=== PATIENT | male | born 1955 | race Caucasian/White ===

== ENCOUNTER 2017-11-30 23:19 | Inpatient (IN) | payer OTHER ==
[~2017-11-30] VITALS: Ht 175.3 cm; Wt 64.6 kg
[~2017-11-30 23:19] MED LIST: ACETAMINOPHEN-H1 TA1 PO; ASPIR 8181 MG PO; BACTRIM DS1 TAB PO; ENALAPRIL MALEA10 MG PO; FERL PO; FUROSEMIDE40 MG PO; HUMALOG100 U/ML SC; HUMULIN R100 U/1 M1 SC; LANTUS SOLOS100 U/M1 SQ; LASIX20 MG PO; NAP375 PO; OMEPRAZOLE40 M1 PO; ZOS3PM IV
[2017-11-30 23:22] VITALS: Ht 175.3 cm; Wt 64.6 kg
[2017-12-01 00:14] LABS: BASOPHIL % 0.5 % (0-2); PLATELET COUNT 198 x10^3mcL (130-400); RED CELL DISTRIBUTION WIDTH 14.8 % (11.5-14.5)
[2017-12-01 00:30] LABS: CALCIUM 8.8 mg/dL (8.5-10.1); CREATININE SERUM 2.7 mg/dL (0.7-1.3); POTASSIUM SERUM 5.2 mmol/L (3.5-5.1)
[2017-12-01 00:34] LABS: ALBUMIN 3.4 g/dL (3.4-5.0); BILIRUBIN TOTAL 0.3 mg/dL (0.20-1.00)
[2017-12-01 00:37] LABS: TOTAL PROTEIN, SERUM 8.3 g/dL (6.4-8.2)
[2017-12-01 03:10] VITALS: BP 153/90
[2017-12-01 04:55] LABS: T3 TOTAL 0.92 ng/mL
[2017-12-01 05:07] LABS: FREE T4 1.23 ng/dL (0.76-1.46); FREE THYROXINE INDEX 3.2 ug/dL (1.4-4.5); T4(THYROXINE) 9.1 ug/dL (4.7-13.3)
[2017-12-01 05:09] LABS: CHOLESTEROL/HDL RATIO 4.8; MAGNESIUM 2.4 mg/dL (1.8-2.4); PHOSPHOROUS 4.7 mg/dL (2.5-4.9)
[2017-12-01 06:47] LABS: UA SPECIFIC GRAVITY >=1.030 (1.005-1.035); microscopic required? YES; urine erythrocyte TRACE (NEGATIVE)
[2017-12-01 09:11] VITALS: BP 172/98
[2017-12-01 11:52] VITALS: BP 136/81
[2017-12-01 16:33] VITALS: BP 141/77
[2017-12-01 20:08] VITALS: BP 155/87
[2017-12-02 06:01] VITALS: BP 154/80
[2017-12-02 06:03] LABS: BASOPHIL % 0.5 % (0-2); PLATELET COUNT 231 x10^3mcL (130-400); RED CELL DISTRIBUTION WIDTH 14.4 % (11.5-14.5)
[2017-12-02 06:46] LABS: CALCIUM 7.9 mg/dL (8.5-10.1); CARBON DIOXIDE 18.6 mmol/L (21-32); CHLORIDE SERUM 110 mmol/L (98-107); CREATININE SERUM 0.9 mg/dL (0.7-1.3); GFR1 > 60 mL/min; GLUCOSE SERUM 190 mg/dL (74-106); MAGNESIUM 1.6 mg/dL (1.8-2.4); PHOSPHOROUS 3.2 mg/dL (2.5-4.9); POTASSIUM SERUM 4.1 mmol/L (3.5-5.1); SODIUM SERUM 140 mmol/L (136-145)
[2017-12-02 09:12] VITALS: BP 158/83
[2017-12-02 16:19] VITALS: BP 144/84
[2017-12-02 21:09] VITALS: BP 133/80
[2017-12-03 05:27] VITALS: BP 132/80
[2017-12-03 06:01] LABS: CALCIUM 8.1 mg/dL (8.5-10.1); CARBON DIOXIDE 18.9 mmol/L (21-32); CHLORIDE SERUM 109 mmol/L (98-107); CREATININE SERUM 0.8 mg/dL (0.7-1.3); GFR1 > 60 mL/min; GLUCOSE SERUM 120 mg/dL (74-106); MAGNESIUM 1.6 mg/dL (1.8-2.4); PHOSPHOROUS 3.1 mg/dL (2.5-4.9); SODIUM SERUM 138 mmol/L (136-145)
[2017-12-03 09:19] LABS: BASOPHIL % 0.7 % (0-2); PLATELET COUNT 245 x10^3mcL (130-400)
[2017-12-03 09:29] LABS: RED CELL DISTRIBUTION WIDTH 14.6 % (11.5-14.5)
[2017-12-03 09:30] LABS: ALKALINE PHOSPHATASE 79 U/L (46-116); ALT/SGPT 14 U/L (16-63); AST/SGOT 14 U/L (15-37); CALCIUM 8.4 mg/dL (8.5-10.1); CARBON DIOXIDE 19.4 mmol/L (21-32); CHLORIDE SERUM 108 mmol/L (98-107); CREATININE SERUM 0.9 mg/dL (0.7-1.3); GFR1 > 60 mL/min; GLUCOSE SERUM 201 mg/dL (74-106); POTASSIUM SERUM 4.3 mmol/L (3.5-5.1); SODIUM SERUM 137 mmol/L (136-145); TOTAL PROTEIN, SERUM 6.5 g/dL (6.4-8.2)
[2017-12-03 09:39] VITALS: BP 150/77
[2017-12-03 09:39] LABS: ALBUMIN 2.6 g/dL (3.4-5.0)
[2017-12-03 13:36] VITALS: BP 154/79
[2017-12-03 16:42] VITALS: BP 133/79
[2017-12-03 20:34] VITALS: BP 144/82
[2017-12-04 06:01] VITALS: BP 165/88
[2017-12-04 06:27] LABS: CALCIUM 8.4 mg/dL (8.5-10.1); CARBON DIOXIDE 17.7 mmol/L (21-32); CHLORIDE SERUM 112 mmol/L (98-107); CREATININE SERUM 0.9 mg/dL (0.7-1.3); GFR1 > 60 mL/min; GLUCOSE SERUM 112 mg/dL (74-106); MAGNESIUM 1.9 mg/dL (1.8-2.4); PHOSPHOROUS 3.3 mg/dL (2.5-4.9); POTASSIUM SERUM 3.9 mmol/L (3.5-5.1); SODIUM SERUM 140 mmol/L (136-145)
[2017-12-04 06:35] VITALS: BP 151/81
[2017-12-04 06:54] LABS: BASOPHIL % 0.4 % (0-2); PLATELET COUNT 255 x10^3mcL (130-400); RED CELL DISTRIBUTION WIDTH 14.5 % (11.5-14.5)
[2017-12-04 11:10] VITALS: BP 118/70
[2017-12-04 13:41] VITALS: BP 124/76
[2017-12-04 17:15] VITALS: BP 141/78
[2017-12-04 21:02] VITALS: BP 125/58
[2017-12-05 05:51] VITALS: BP 95/56
[2017-12-05 06:29] LABS: BASOPHIL % 0.2 % (0-2); PLATELET COUNT 238 x10^3mcL (130-400)
[2017-12-05 06:44] LABS: RED CELL DISTRIBUTION WIDTH 14.7 % (11.5-14.5)
[2017-12-05 06:45] LABS: CALCIUM 8.2 mg/dL (8.5-10.1); CHLORIDE SERUM 112 mmol/L (98-107); CREATININE SERUM 1.1 mg/dL (0.7-1.3); GFR1 > 60 mL/min; GLUCOSE SERUM 116 mg/dL (74-106); MAGNESIUM 1.7 mg/dL (1.8-2.4); PHOSPHOROUS 3.8 mg/dL (2.5-4.9); POTASSIUM SERUM 4.4 mmol/L (3.5-5.1); SODIUM SERUM 138 mmol/L (136-145)
[2017-12-05 08:46] VITALS: BP 105/63
[2017-12-05 17:24] VITALS: BP 110/68
[2017-12-05 21:06] VITALS: BP 120/70
[2017-12-06 05:32] VITALS: BP 132/77
[2017-12-06 06:13] LABS: BASOPHIL % 0.7 % (0-2); PLATELET COUNT 232 x10^3mcL (130-400)
[2017-12-06 06:33] LABS: CALCIUM 7.9 mg/dL (8.5-10.1); CARBON DIOXIDE 17.4 mmol/L (21-32); CHLORIDE SERUM 111 mmol/L (98-107); CREATININE SERUM 0.9 mg/dL (0.7-1.3); GFR1 > 60 mL/min; GLUCOSE SERUM 150 mg/dL (74-106); MAGNESIUM 1.6 mg/dL (1.8-2.4); PHOSPHOROUS 3.1 mg/dL (2.5-4.9); POTASSIUM SERUM 4.1 mmol/L (3.5-5.1); SODIUM SERUM 140 mmol/L (136-145)
[2017-12-06 07:17] LABS: RED CELL DISTRIBUTION WIDTH 14.7 % (11.5-14.5)
[2017-12-06 09:26] VITALS: BP 135/77
[2017-12-06 12:21] VITALS: BP 135/77
== END 2017-12-06 15:13 | DRG 305 ==
LOC: ED 23:19 → DU 12-01 01:28 → MU 12-04 12:47
PROVIDERS: Emergency Medicine; Family Medicine; Internal Medicine; Podiatrist
PROC: 0HDMXZZ Extraction of Right Foot Skin, External Approach (ICD-10-PCS; principal; 2017-12-01)
PROC: 0Y6M0ZF Detachment at Right Foot, Partial 5th Ray, Open Approach (ICD-10-PCS; 2017-12-04)
PROC: 0L8N0ZZ Division of Right Lower Leg Tendon, Open Approach (ICD-10-PCS; 2017-12-04)
DX: E11.621 Type 2 diabetes mellitus with foot ulcer (principal); N17.0 Acute kidney failure with tubular necrosis; E46 Unspecified protein-calorie malnutrition; E11.40 Type 2 diabetes mellitus with diabetic neuropathy, unspecified; E87.5 Hyperkalemia; M86.8X8 Other osteomyelitis, other site; E11.65 Type 2 diabetes mellitus with hyperglycemia; L97.519 Non-pressure chronic ulcer of other part of right foot with unspecified severity; E86.0 Dehydration; E78.5 Hyperlipidemia, unspecified; E11.69 Type 2 diabetes mellitus with other specified complication; I10 Essential (primary) hypertension; K21.9 Gastro-esophageal reflux disease without esophagitis; F17.210 Nicotine dependence, cigarettes, uncomplicated; Z79.82 Long term (current) use of aspirin; Z79.4 Long term (current) use of insulin; Z89.421 Acquired absence of other right toe(s); Z68.24 Body mass index [BMI] 24.0-24.9, adult
CPT/HCPCS: 36600; 83880; 84439; 94150; 97110-GP; 97116-GP; 97530-GP; 97535-GP; J2175; J2250; J2405; J3010; J3370; J3475; J3490; J7030; J7040; Q0092

== ENCOUNTER 2018-03-31 11:50 | Inpatient (IN) | payer OTHER ==
[~2018-03-31] VITALS: Ht 175.3 cm; Wt 72.0 kg
[2018-03-31 14:24] LABS: PLATELET COUNT 134 x10^3mcL (130-400); RED CELL DISTRIBUTION WIDTH 13.8 % (11.5-14.5)
[2018-03-31 14:33] LABS: BAND NEUTROPHIL 2 % (0-10); MONOCYTE 3 % (0-7); SEGMENTED NEUTROPHILS 90 % (37-75)
[2018-03-31 14:34] LABS: rbc morphology (normal/abnorm) ABNORMAL (NORMAL)
[2018-03-31 14:59] LABS: CALCIUM 8.5 mg/dL (8.5-10.1); CARBON DIOXIDE 18.5 mmol/L (21-32); CREATININE SERUM 1.6 mg/dL (0.7-1.3)
[2018-03-31 15:04] LABS: BILIRUBIN TOTAL 0.31 mg/dL (0.20-1.00); MAGNESIUM 2.1 mg/dL (1.8-2.4); PHOSPHOROUS 3.1 mg/dL (2.5-4.9); TOTAL PROTEIN, SERUM 7.5 g/dL (6.4-8.2)
[2018-03-31 15:05] LABS: ALBUMIN 2.2 g/dL (3.4-5.0)
[2018-03-31 15:21] LABS: microscopic required? YES; urine erythrocyte 1+ (NEGATIVE)
[2018-03-31 15:42] LABS: AMPHETAMINE QUAL UR NONE DETECTED (See below)
[2018-03-31 18:02] VITALS: BP 149/77
[2018-03-31 18:34] LABS: LIPASE 95 IU/L (73-393)
[2018-03-31 18:35] LABS: OSMOLALITY SERUM 298 mOsm/kg (278-298)
[2018-03-31 18:36] LABS: AMYLASE 19 U/L (25-115)
[2018-03-31 18:55] LABS: T3 TOTAL 0.7 ng/mL
[2018-03-31 18:58] LABS: FREE T4 0.96 ng/dL (0.76-1.46); FREE THYROXINE INDEX 1.9 ug/dL (1.4-4.5); T4(THYROXINE) 5.1 ug/dL (4.7-13.3)
[2018-03-31 19:06] LABS: IRON 12 ug/dL (65-170); TOTAL IRON BINDING CAPACITY 210 ug/dL (250-450)
[2018-03-31 20:35] VITALS: BP 177/91
[2018-04-01 00:53] VITALS: BP 141/78
[2018-04-01 05:13] VITALS: BP 136/76
[2018-04-01 09:54] VITALS: BP 150/76
[2018-04-01 11:18] LABS: PLATELET COUNT 296 x10^3mcL (130-400)
[2018-04-01 11:19] LABS: CALCIUM 8.3 mg/dL (8.5-10.1); CARBON DIOXIDE 16.8 mmol/L (21-32); CREATININE SERUM 1.5 mg/dL (0.7-1.3); POTASSIUM SERUM 4.7 mmol/L (3.5-5.1)
[2018-04-01 11:46] LABS: RED CELL DISTRIBUTION WIDTH 14.6 % (11.5-14.5)
[2018-04-01 12:09] LABS: BAND NEUTROPHIL 0 % (0-10); BASOPHIL 0 % (0-2); MONOCYTE 14 % (0-7); PLATELET MORPHOLOGY PLATELETS DECREASED; SEGMENTED NEUTROPHILS 85 % (37-75); rbc morphology (normal/abnorm) ABNORMAL (NORMAL)
[2018-04-01 18:34] VITALS: BP 162/75
[2018-04-01 20:55] VITALS: BP 163/78
[2018-04-02 05:17] VITALS: BP 143/62
[2018-04-02 06:38] LABS: PLATELET COUNT 300 x10^3mcL (130-400); RED CELL DISTRIBUTION WIDTH 13.9 % (11.5-14.5)
[2018-04-02 06:53] LABS: CALCIUM 8.1 mg/dL (8.5-10.1); CARBON DIOXIDE 14.7 mmol/L (21-32); CREATININE SERUM 1.5 mg/dL (0.7-1.3); POTASSIUM SERUM 4.3 mmol/L (3.5-5.1)
[2018-04-02 08:52] LABS: ATYPICAL LYMPH 1 %; BAND NEUTROPHIL 0 % (0-10); BASOPHIL 0 % (0-2); SEGMENTED NEUTROPHILS 97 % (37-75)
[2018-04-02 08:53] LABS: rbc morphology (normal/abnorm) ABNORMAL (NORMAL)
[2018-04-02 08:54] LABS: PLATELET MORPHOLOGY PLATELETS NORMAL
[2018-04-02 09:39] VITALS: BP 147/73
[2018-04-02 16:46] VITALS: BP 146/67
[2018-04-02 20:41] VITALS: BP 126/67
[2018-04-03 05:04] VITALS: BP 145/72
[2018-04-03 06:27] LABS: PLATELET COUNT 300 x10^3mcL (130-400); RED CELL DISTRIBUTION WIDTH 14.4 % (11.5-14.5)
[2018-04-03 06:32] LABS: CALCIUM 7.8 mg/dL (8.5-10.1); CARBON DIOXIDE 16.2 mmol/L (21-32); CREATININE SERUM 1.6 mg/dL (0.7-1.3); MAGNESIUM 1.8 mg/dL (1.8-2.4); PHOSPHOROUS 3.7 mg/dL (2.5-4.9); POTASSIUM SERUM 3.9 mmol/L (3.5-5.1)
[2018-04-03 08:40] LABS: BAND NEUTROPHIL 2 % (0-10); BASOPHIL 0 % (0-2); MONOCYTE 5 % (0-7); PLATELET MORPHOLOGY PLATELETS NORMAL; SEGMENTED NEUTROPHILS 93 % (37-75); rbc morphology (normal/abnorm) ABNORMAL (NORMAL)
[2018-04-03 09:14] VITALS: BP 141/70
[2018-04-03 11:57] VITALS: Ht 175.3 cm; Wt 72.0 kg
[2018-04-03 18:00] VITALS: BP 166/82
[2018-04-03 21:27] VITALS: BP 167/69
[2018-04-04 04:48] VITALS: BP 146/73
[2018-04-04 06:39] LABS: PLATELET COUNT 330 x10^3mcL (130-400); RED CELL DISTRIBUTION WIDTH 14.4 % (11.5-14.5)
[2018-04-04 06:59] LABS: CALCIUM 7.7 mg/dL (8.5-10.1); CARBON DIOXIDE 15.8 mmol/L (21-32); CREATININE SERUM 1.4 mg/dL (0.7-1.3); MAGNESIUM 1.6 mg/dL (1.8-2.4)
[2018-04-04 09:21] LABS: BAND NEUTROPHIL 0 % (0-10); BASOPHIL 0 % (0-2); MONOCYTE 5 % (0-7); SEGMENTED NEUTROPHILS 93 % (37-75)
[2018-04-04 09:23] LABS: rbc morphology (normal/abnorm) ABNORMAL (NORMAL)
[2018-04-04 09:24] LABS: PLATELET MORPHOLOGY PLATELETS INCREASED
[2018-04-04 09:54] VITALS: BP 150/62
[2018-04-04 17:38] VITALS: BP 159/83
[2018-04-04 20:57] VITALS: BP 121/79
[2018-04-05 05:11] VITALS: BP 143/71
[2018-04-05 06:26] LABS: BASOPHIL % 0.4 % (0-2); PLATELET COUNT 370 x10^3mcL (130-400)
[2018-04-05 06:31] LABS: CALCIUM 7.9 mg/dL (8.5-10.1); CARBON DIOXIDE 17.9 mmol/L (21-32); CREATININE SERUM 1.3 mg/dL (0.7-1.3); MAGNESIUM 1.9 mg/dL (1.8-2.4)
[2018-04-05 06:49] LABS: RED CELL DISTRIBUTION WIDTH 14.7 % (11.5-14.5)
[2018-04-05 11:11] VITALS: BP 130/69
[2018-04-05 17:00] VITALS: BP 154/75
[2018-04-05 20:41] VITALS: BP 141/71
[2018-04-06 05:25] VITALS: BP 145/69
[2018-04-06 06:17] LABS: PLATELET COUNT 349 x10^3mcL (130-400); RED CELL DISTRIBUTION WIDTH 14.5 % (11.5-14.5)
[2018-04-06 06:29] LABS: CALCIUM 7.8 mg/dL (8.5-10.1); CARBON DIOXIDE 20.1 mmol/L (21-32); CREATININE SERUM 1.4 mg/dL (0.7-1.3); POTASSIUM SERUM 4.6 mmol/L (3.5-5.1)
[2018-04-06 09:24] VITALS: BP 141/75
[2018-04-06 16:31] VITALS: BP 150/81
[2018-04-06 20:50] VITALS: BP 149/73
[2018-04-07 04:46] VITALS: BP 141/70
[2018-04-07 06:04] LABS: BASOPHIL % 0.5 % (0-2); PLATELET COUNT 364 x10^3mcL (130-400); RED CELL DISTRIBUTION WIDTH 14.3 % (11.5-14.5)
[2018-04-07 06:29] LABS: CALCIUM 7.9 mg/dL (8.5-10.1); CARBON DIOXIDE 19.4 mmol/L (21-32); CREATININE SERUM 1.3 mg/dL (0.7-1.3); POTASSIUM SERUM 4.6 mmol/L (3.5-5.1)
[2018-04-07 09:49] VITALS: BP 161/84
[2018-04-07] MEDS ORDERED: BAC PO (15:52)
[2018-04-07 16:15] VITALS: BP 143/75
== END 2018-04-07 17:40 | disposition home health service (06) | DRG 794 ==
LOC: ED 11:50 → MU 16:09
PROVIDERS: Emergency Medicine; Family Medicine; General Practice; Surgery
PROC: 0J9J0ZZ Drainage of Right Hand Subcutaneous Tissue and Fascia, Open Approach (ICD-10-PCS; principal; 2018-04-05 09:15)
DX: T40.991A Poisoning by other psychodysleptics [hallucinogens], accidental (unintentional), initial encounter (principal); N17.0 Acute kidney failure with tubular necrosis; E43 Unspecified severe protein-calorie malnutrition; E11.22 Type 2 diabetes mellitus with diabetic chronic kidney disease; E86.0 Dehydration; L02.413 Cutaneous abscess of right upper limb; T47.8X1A Poisoning by other agents primarily affecting gastrointestinal system, accidental (unintentional), initial encounter; E11.65 Type 2 diabetes mellitus with hyperglycemia; N18.3 Chronic kidney disease, stage 3 (moderate); E83.42 Hypomagnesemia; E87.1 Hypo-osmolality and hyponatremia; I12.9 Hypertensive chronic kidney disease with stage 1 through stage 4 chronic kidney disease, or unspecified chronic kidney disease; K21.9 Gastro-esophageal reflux disease without esophagitis; D64.9 Anemia, unspecified; F17.210 Nicotine dependence, cigarettes, uncomplicated; F16.10 Hallucinogen abuse, uncomplicated; F12.10 Cannabis abuse, uncomplicated; Z89.421 Acquired absence of other right toe(s); Z79.4 Long term (current) use of insulin; Z68.22 Body mass index [BMI] 22.0-22.9, adult; Z81.3 Family history of other psychoactive substance abuse and dependence; Y92.89 Other specified places as the place of occurrence of the external cause
CPT/HCPCS: 82962; 83880; 84439; 97110-GP; 97116-GP; 97530-GP; 99406; J0295; J1170; J1956; J2001; J2250; J2405; J2543; J3490; J7030; Q0092

== ENCOUNTER 2018-12-03 18:04 | Inpatient (IN) | payer OTHER ==
[~2018-12-03] VITALS: Ht 177.8 cm; Wt 64.4 kg
[~2018-12-03 18:04] MED LIST changes: +BAC PO
--- NOTE | 2018-12-03 18:23 | NUR ---
DR. HIGGINS NOTIFIED THAT PT MEETS SIRS CRITERIA (HR 119, RR 22). PT HS HX OF POLYSUBSTANCE DRUG ABUSE & APPEARS TO BE UNDER THE INFLUENCE (EXPLOSIVE VERBALIZATIONS, TWITCHING, SLAPPING HIMSELF REPEATEDLY ON THE FACE, & SEEMS TO BE INTERACTING WITH THE FOOT OF THE BED).
--- NOTE | 2018-12-03 18:35 | NUR ---
PCXR DONE. PT COUGHING PERIODICALLY. CONTINUES TO TWITCH & MAKE RANDOM MOVEMENTS.
[2018-12-03 18:40] LABS: BASOPHIL % 0.4 % (0-2); PLATELET COUNT 297 x10^3mcL (130-400)
[2018-12-03 18:42] LABS: RED CELL DISTRIBUTION WIDTH 16.7 % (11.5-14.5)
--- NOTE | 2018-12-03 18:44 | NUR ---
LATE ENTRY, PT BIBA, NEIGHBORS CALLED EMS BECAUSE THEY FOUND PT TO BE ALTERED AND NOT ACTING "HIMSELF" SPIT MASK ON PT WHEN ARRIVED, PER REPORT, THEY STATES HE WAS YELLING AND SPIT WAS COMING OUT, BUT NOT ON PURPOSE. PT WITH BIZARRE BEHAVIOR, TWITCHING, RESTLESS IN BED. ALERT TO NAME ONLY, FOLLWS SIMPLE COMMANDS, BUT NOT LETTING STAFF INSERT IV OR BLOOD DRAW. PT SLIGHTLY TACYPNIC, AT 22MIN, ST AT 119 ONMONITOR. PT DENIES ANY CP OR SOB. RESP EVEN AND UNLABORED, ON RA@94%, ABD FLAT,S OFT, NT TO PALAPTION. MULTIPLE DRY SCARATCHES NOTED TO BODY, NO OPEN WOUNDS. BUTTOCKS REDDNED WITH NO OPEN SORES. PT CONTINUES TO BE RESTLESS, DR HIGGINS IN ROOM, ORDERS RECIEVED AND MEDICATED ORDERED. SAFETY IN DIRECT SIGHT OF NURSING STATION, SAFETY PRECAUTIONS INPLACE. WILL CONTINUE TO MONITOR CLOSELY.
--- NOTE | 2018-12-03 18:48 | NUR ---
PT'S HEAD TIPPED BACK, BARELY BREATHING, RESP RATE APPROX 8-10 PER MINUTE, O2 SAT FALLING TO 70'S. TRIED TO STIMULATE PT W/ VERY LITTLE EFFECT, PLACED PT ON O2 VIA NRB MASK & W/ CONTINUED STIMULATION & SUPPORT OF PT'S HEAD IN A MORE UPRIGHT POSITION O2 SAT UP TO 96%. DR HIGGINS ALSO CALLED TO BEDSIDE.
[2018-12-03 18:51] LABS: CARBON DIOXIDE 17.6 mmol/L (21-32); CHLORIDE SERUM 109 mmol/L (98-107); CREATININE SERUM 2.7 mg/dL (0.7-1.3); GFR1 26 mL/min; GLUCOSE SERUM 293 mg/dL (74-106); POTASSIUM SERUM 5.4 mmol/L (3.5-5.1); SODIUM SERUM 142 mmol/L (136-145)
--- NOTE | 2018-12-03 19:01 | NUR ---
IV SL TO LEFT FA, IN AN DOUT CATH, URINE COLLECTED AND SENT.
[2018-12-03 19:03] LABS: ALBUMIN 3.4 g/dL (3.4-5.0); ALKALINE PHOSPHATASE 123 U/L (46-116); ALT/SGPT 22 U/L (16-63); AST/SGOT 13 U/L (15-37); BILIRUBIN DIRECT 0.11 mg/dL (0.0-0.2); BILIRUBIN TOTAL 0.2 mg/dL (0.20-1.00); LIPASE 150 IU/L (73-393); TOTAL PROTEIN, SERUM 7.7 g/dL (6.4-8.2)
--- NOTE | 2018-12-03 19:05 | NUR ---
RR-SHALLOW AT 8/MIN, DR HIGGINS INFORMED, NO FURTEHR ORDERS RECEIVED.
--- NOTE | 2018-12-03 19:08 | NUR ---
REPORT GIVEN TO DANIELLE PANIAGUA, UPDATED ON CURRENT STATUS.
--- NOTE | 2018-12-03 19:13 | NUR ---
RECEIVED PATIENT FROM DAY SHIFT NURSE. PT IS RESTING IN [place]ENDE[place]G POSITIONING ON NON REBREATHER AT 5LPM. RR 12 AND SHALLOW. WILL CONTINUE TO MONITOR.
--- NOTE | 2018-12-03 19:19 | NUR ---
DR LIGHT AT BEDSIDE FOR US IV INSERTION.
[2018-12-03 19:24] LABS: microscopic required? YES; urine erythrocyte 1+ (NEGATIVE)
[2018-12-03 19:37] LABS: AMPHETAMINE QUAL UR POSITIVE (See below)
--- NOTE | 2018-12-03 19:45 | NUR ---
DR HIGGINS AT BEDSIDE FOR CENTRAL LINE PLACEMENT.
[2018-12-03 19:50] LABS: MAGNESIUM 1.9 mg/dL (1.8-2.4); PHOSPHOROUS 5.2 mg/dL (2.5-4.9)
--- NOTE | 2018-12-03 20:20 | NUR ---
PT IS AWAKE AND WITH SPONTANEOUS RESPONSES TO VERBAL STIMULI. S/P NARCAN ADMIN PT IS SITTING UP IN BED AND HAVING APPROPRIATE CONVERSATION. PT STS "I DO NOT KNOW WHY I AM HERE. WHAT HAPPENED?" PT GIVEN EXPLAINATION OF REASON FOR COMING TO THE ED. RR 18 ON 2L NC WITH RESP E/U. O2 SAT 99%. DR BOJORQUEZ AWARE OF PT STATUS.
--- NOTE | 2018-12-03 20:22 | NUR ---
RT AT BEDSIDE FOR ABGS.
--- NOTE | 2018-12-03 20:22 | NUR ---
HOLD ZOSYN AT THIS TIME PER DR BOJORQUEZ.
--- NOTE | 2018-12-03 20:31 | NUR ---
PT STS "I DONT FEEL SO GOOD." PT HAD EPISODE VOMITING X1, DARK BROWN EMESIS APPROX 200CC. DR BOJORQUEZ AWARE.
--- NOTE | 2018-12-03 20:36 | NUR ---
LAB AT BEDSIDE.
--- NOTE | 2018-12-03 20:40 | NUR ---
PT PLACED ON ROOM AIR. O2 SAT 98%. WILL CONTINUE TO MONITOR.
--- NOTE | 2018-12-03 21:05 | NUR ---
PT TAKEN TO CT.
--- NOTE | 2018-12-03 21:54 | NUR ---
PT RR NOTED TO BE 9. PT AROUSABLE TO VERBAL STIMULI. RESP RATE INCREASED TO 14. DR BOJORQUEZ AWARE. O2 SAT REMAINS 99% ON ROOM AIR.
--- NOTE | 2018-12-03 22:43 | NUR ---
REPORT CALLED AND GIVEN TO SIVA LOPEZ.
--- NOTE | 2018-12-03 22:50 | NUR ---
RECEIVED PT VIA [employer]ing TasteER[employer] FROM E/D, ACCOMPANIED BY RN AND TRANSPORTER. PT ORIENTED X 3 (PERSON, PLACE, PURPOSE), LETHARGIC, WITH SLOW, SLURRED SPEECH/RESPONSE. ON TELE # 3, HR 91, SR W/ ELEVATED T-WAVES, DENIES CHEST PAIN OR DISCOMFORT AT THIS TIME. LUNGS CTAB, CHEST RISING EVENLY, R/A, 97%, RR 9, NO ACUTE RESPIRATORY DISTRESS NOTED. PT EDENTULOUS, ON ASPIRATION RISK 2/2 ALOC. VOIDS FREELY, DENIES DYSURIA. GENERALIZED WEAKNESS 2/2 ALOC, NOTED AMPUTATED R TOES, USES WALKER @ HOME, FALL RISK PROTOCOL IN PLACE. SCATTERED SCABS/ABRASIONS TO BODY OF VARYING SHAPES, SIZES, AND STAGES, ALL ROGELIO. IV SITE RAC 20G AND R FEMORAL CENTRAL CATH 2-LUMEN, BOTH CDI. PT UNABLE TO PARTICIPATE FULLY TO ANY LEARNING ACTIVITY AT THIS TIME 2/2 ALOC. SIDE RAILS UP X 2, BED IN LOW POSITION. WILL ENDORSE TO SIVA LOPEZ.
[2018-12-03 23:56] VITALS: BP 125/82
--- NOTE | 2018-12-04 00:52 | NUR ---
PT IS RESTING IN BED WITH EYES CLOSED, PT IS LETHARGIC BUT AROUSABLE WITH VERBAL STIMULUS, PT HAS NO COMPLAINT OF PAIN AT THIS TIME. SAFETY AND COMFORT MEASURES MAINTAINED, CALL LIGHT WITHIN REACH.
[2018-12-04 05:31] VITALS: BP 115/67
--- NOTE | 2018-12-04 05:36 | NUR ---
PT IS LETHARGIC AND EASILY AROUSABLE TO VERBAL STIMULUS. PT HAS BEEN ALERT AND ORIENTED X3, CALM WITH NURSING CARE. PT HAS NO COMPLAINT OF PAIN AT THIS TIME. PT IS CURRENTLY RESTING IN BED WITH EYES CLOSED AT THIS TIME. PT HAS PULLED OUT RIGHT AC IV, CATHETER TIP WAS INTACT, RECEIVED ORDER FROM DR GUEVARA TO BE ABLE TO INFUSE IV FLUIDS THROUGH TRIPLE LUMEN CENTRAL LINE IN THE RIGHT FEMORAL. SAFETY AND COMFORT MEASURES MAINTAINED, BED IN LOWEST POSITION, CALL LIGHT WITHIN REACH. WILL ENDORSE CONTINUITY OF CARE TO THE ONCOMING RN.
[2018-12-04 06:59] LABS: CARBON DIOXIDE 18.6 mmol/L (21-32); CREATININE SERUM 2.1 mg/dL (0.7-1.3); MAGNESIUM 1.7 mg/dL (1.8-2.4); PHOSPHOROUS 4.1 mg/dL (2.5-4.9)
--- NOTE | 2018-12-04 07:25 | NUR ---
RECEIVED PT. IN BED A/A/O X3. NO SOB, NO N/V NOTED. PT. DENIES ANY PAIN AT THIS TIME. NS RUNNING AT 125 CC/HR VIA TLC CATH. AT R FEMORAL. BED IN LOW POS., CALL LIGHT WITHIN REACH. SIDE RAILS UP X3.
[2018-12-04 07:42] LABS: POTASSIUM SERUM 6.1 mmol/L (3.5-5.1)
[2018-12-04 08:04] LABS: BASOPHIL % 0.4 % (0-2); PLATELET COUNT 235 x10^3mcL (130-400); RED CELL DISTRIBUTION WIDTH 16.5 % (11.5-14.5)
[2018-12-04 08:38] VITALS: BP 119/67
[2018-12-04 12:17] VITALS: BP 138/74
[2018-12-04 13:33] LABS: CALCIUM 8.2 mg/dL (8.5-10.1); CARBON DIOXIDE 19.3 mmol/L (21-32); CREATININE SERUM 1.8 mg/dL (0.7-1.3)
--- NOTE | 2018-12-04 13:42 | NUR ---
REPORTED REPEATED POTASSIUM LEVEL (5.6) TO DR. BELLO. NO FURTHER ORDER RECEIVED AT THIS TIME.
[2018-12-04 13:47] LABS: POTASSIUM SERUM 5.6 mmol/L (3.5-5.1)
[2018-12-04 16:43] VITALS: BP 139/75
--- NOTE | 2018-12-04 18:10 | NUR ---
REMAINS IN STABLE CONDITION AT THIS TIME. WILL CONTINUE TO MONITOR.
--- NOTE | 2018-12-04 18:26 | NUR ---
FLUSHED 10 CC NS TO EACH PORT OF TLC CATH. AT R GROIN PER PROTOCOL. ALL 3 PORTS FLUSHED WELL.
[2018-12-04 19:10] LABS: CALCIUM 8.3 mg/dL (8.5-10.1); CARBON DIOXIDE 22.2 mmol/L (21-32); CREATININE SERUM 1.8 mg/dL (0.7-1.3); POTASSIUM SERUM 5.2 mmol/L (3.5-5.1)
--- NOTE | 2018-12-04 20:13 | NUR ---
PT RECIEVED AAO REG RESP NO SOB V/S STABLE,IV INFUSING TO THE RT GRION CENTRAL LINE WITH THE SITE PATENT AND INTACT,RT LEG WITH ALL TOES AMPUTATED,SKIN IS WARM AND DRY TO TOUCH AN WITH SCABS TO THE BODY AND WITH ALL SIZES,KEPT CLEAN AND DRY TO TOUCH,BED IN THE LOW POSITION AND LOCKED,KEPT CLEAN AND DRY TO TOUCH,WILL CONTINUE TO MONITOR.
--- NOTE | 2018-12-04 20:41 | NUR ---
CALL TO THE RESIDENT WITH PATIENT C/O OF ACID REFLEX AND NEEDED MEDS FOR THAT,CALL TO THE RESIDENT AND SAYS WILL ORDER SOME MEDS,WILL CONTINUE TO MONITOR.
[2018-12-04 21:23] VITALS: BP 156/78
--- NOTE | 2018-12-05 03:35 | NUR ---
PT RESTINGA T THUIS TIME,WILL CONTINUE TO MONITOR.
[2018-12-05 05:20] VITALS: BP 168/94
[2018-12-05 06:10] LABS: BASOPHIL % 0.5 % (0-2); PLATELET COUNT 183 x10^3mcL (130-400)
--- NOTE | 2018-12-05 06:28 | NUR ---
PT HAD A RESTING NIGHT NO CHANGE AT THIS TIME,WILL CONTINUE TO MONITOR.
[2018-12-05 06:31] LABS: CALCIUM 8.4 mg/dL (8.5-10.1); CARBON DIOXIDE 18.9 mmol/L (21-32); CREATININE SERUM 1.7 mg/dL (0.7-1.3); MAGNESIUM 1.4 mg/dL (1.8-2.4); PHOSPHOROUS 2.9 mg/dL (2.5-4.9)
[2018-12-05 06:48] LABS: POTASSIUM SERUM 6.2 mmol/L (3.5-5.1)
--- NOTE | 2018-12-05 07:26 | NUR ---
ENDORSECD TO THE AM NURSE TO FOLLOW UP WITH THE CRITICAL VALUE OF K+ 6.0,WILL CONTINUE TO MONITOR.
[2018-12-05 08:49] VITALS: BP 148/76
--- NOTE | 2018-12-05 08:53 | NUR ---
AMAURI COUGHLIN NOTIFIED OF K 6.2 AND MG 1.4.
--- NOTE | 2018-12-05 09:33 | NUR ---
PT RESTING IN BED, COMPLAINING OF 8/10 BACK PAIN, REQUESTING NORCO PO, NORCO PO GIVEN, CALL LIGHT WITHIN REACH.
--- NOTE | 2018-12-05 11:49 | NUR ---
PT RESTING IN BED, STATES HE AMBULATED VIA WALKER WITH PHYSICAL THERAPY, STATES PAIN IS TOLERABLE AT THIS TIME, NO REPSRIATORY DISTRESS NOTED, CALL LIGHT WITHIN REACH.
[2018-12-05 13:03] VITALS: BP 159/80
--- NOTE | 2018-12-05 13:32 | NUR ---
DIALYSIS COMPLETE?l 4L OUTPUT, VS STABLE, NO RESPRIATORY DISTRESS NOTED, PT COMPLAINING OF 9/10 BACK PAIN AND BLE PAIN, REQUESTING MORPHINE IVP, MORPHINE IVP GIVEN, CALL LIGHT WITHIN REACH.
--- NOTE | 2018-12-05 13:33 | NUR ---
PT RESTING IN BED, NO RESPIRATORY DISTRESS NOTED, STATES HE VOMITED X1 AFTER EATING LUNCH, PT STATES HE DID NOT LIKE THE FOOD AND VOMITED AFTER EATING, PT DENIES NAUSEA AND DECLINES NAUSEA MEDS, CALL LIGHT WITHIN REACH.
--- NOTE | 2018-12-05 14:17 | NUR ---
PT RESTING IN BED WITH BOTH EYES CLOSED, APPEARS TO BE SLEEPING, NO RESPRIATORY DISTRESS NOTED, CALL LIGHT WITHIN REACH.
--- NOTE | 2018-12-05 16:16 | NUR ---
PT RESTING IN BED, NO RESPIRATORY DISTRESS NOTED, APPEARS TO BE SLEEPING, CALL LIGHT WITHIN REACH.
[2018-12-05 16:47] VITALS: BP 123/72
--- NOTE | 2018-12-05 17:18 | NUR ---
PT RESTING IN BED, NO RESPRIATORY DISTRESS NOTED, COMPLAINING OF 8/10 BACK PAIN, REQUESTING NORCO, NORCO PO GIVEN, CALL LIGHT WITHIN.
--- NOTE | 2018-12-05 18:07 | NUR ---
PT CONT TO HAVE DIFFICULTY SWALLOWING SOLID FOODS, SPITTING UP AND COUGHING. PT STATES HE IS NOT HAVING NAUSEA. POLITICAL CARTOONIST AMAURI NOTIFIED AND ORDERED SWALLOW EVAL.
--- NOTE | 2018-12-05 18:28 | NUR ---
CENTRAL LINE DRESSING CHANGED, ALL 3 PORTS FLUSHED AND PATENT, CHG WIPES DONE. PT STATED EARLIER THAT HE HAD A BM YESTERDAY. PT NOW STATING THAT HE HAS NOT HAD BM SINCE Monday12/02/18. WILL ENDORSE TO NOC SHIFT THAT PT IS POSSIBLY CONSTIPATED. CALL LIGHT WITHIN REACH, SITTER AT BEDSIDE.
--- NOTE | 2018-12-05 19:14 | NUR ---
ENDORSED CARE TO JEREMIAS PANIAGUA.
[2018-12-05 19:41] VITALS: BP 129/77
--- NOTE | 2018-12-05 20:00 | NUR ---
SPOKE TO DR THOMAS ABOUT PATIENT COMPLAINT OF BEING CONSTIPATED AND STATES THAT HE HAD BM YESTERDAY TO ONE NURSE AND A DIFF DATE LAST WEEK TO ANOTHER NURSE. STATED WILL ORDER KUB. WILL FOLLOW UP. ORDER.
--- NOTE | 2018-12-05 20:12 | NUR ---
PT RECIEVED AAO REG RESP NO SOB V/S STABLE,IV INFUSING WELL WITH THE SITE PATENT AND INTACT TO THE RT FEMORAL SITE PATENT AND INTACT,KEPT CLEAN AND DRY TO TOUCH,SKIN IS WARM AND DRY TO TOUCH WITH SCATTERED SCABS ROGELIO,HOB,PT ON TELE MONITOR AND IN NSR NO ECTOPY OR CHEST PAIN AT THIS TIME,PT ON TELE MONITOR AND IN NSR NO ECTOPY OR CHEST PAIN AT THIS TIME,CALL LIGHT EASY REACHED AND WILL CONTINUE TO MONITOR.
--- NOTE | 2018-12-05 21:08 | NUR ---
THE NIGHT RESIDENT HERE MADE AWARE OF PATIENT WILL BE NEEDED SOME MEDS TO MOVE HIS BOWEL.ORDER HAS BEING PUT IN,WILL CONTINUE TO MONITOR.
--- NOTE | 2018-12-05 21:09 | NUR ---
MEDICATION WAS ADMINISTER TONIGHT AND PATIENT WAS ABLE TO SWALLOW BUT NEEDED MORE FLUIDS TO PUSH MEDS DOWN,HOB,HAS A COUGH DURING THE SWALLOWING,HOB AND WILL CONTINUE TO MONITOR.
--- NOTE | 2018-12-05 21:22 | NUR ---
LACTULOSE 15 ML PO GIVEN ORDER AND WILL CONTINUE TO MONITOR.
[2018-12-06 05:08] VITALS: BP 139/88
[2018-12-06 06:26] LABS: CALCIUM 8.2 mg/dL (8.5-10.1); CARBON DIOXIDE 15.7 mmol/L (21-32); CREATININE SERUM 1.5 mg/dL (0.7-1.3); MAGNESIUM 1.7 mg/dL (1.8-2.4); POTASSIUM SERUM 4.7 mmol/L (3.5-5.1)
--- NOTE | 2018-12-06 06:33 | NUR ---
PT HAD A RESTING NIGHT NO CHANGE AT THIS TIME,CALL LIGHT EASY REACHED AND WILL CONTINUE TO MONITOR.
[2018-12-06 07:24] VITALS: BP 158/81
[2018-12-06 07:45] LABS: BASOPHIL % 0.4 % (0-2); PLATELET COUNT 186 x10^3mcL (130-400)
[2018-12-06 07:48] LABS: RED CELL DISTRIBUTION WIDTH 16.1 % (11.5-14.5)
--- NOTE | 2018-12-06 07:58 | NUR ---
RECEIVED PATIENT FROM SIVA MCDOWELL. PATIENT SEATED IN BED, DENIES ANY PAIN OR DISCOMFORT. SPOKE WITH PATIENT ABOUT PLAN OF CARE TODAY AND MEDICATIONS, PATIENT GESTURES AGREEMENT. WILL CONTINUE TO MONITOR AND ASSESS CENTRAL LINE. CALL LIGHT IN REACH AT THIS TIME.
--- NOTE | 2018-12-06 09:07 | NUR ---
MADYSON BAUGH IN TO SPEAK W PATIENT. STATES SHE WILL ORDER A XRAY KUB TO CHECK FOR CONSTIPATION. PATIENT STATES HIS LAST BM "WAS AWHILE". PO MEDICATIONS ADMINISTERED AND PATIENT TOLERATED. XR KUB TAKEN, WILL AWAIT FOR RESULTS. CALL LIGHT IN REACH AT THIS TIME.
[2018-12-06 11:34] VITALS: BP 124/62
--- NOTE | 2018-12-06 11:55 | NUR ---
Initial Nutrition Assessment: 210 T/B MELECIO ESPINO IA HR Dx: ALOC, poly drug use, sepsis PMHx: Polysubstance abuse, HTN and DM PSHx: Amputation of R foot digits Labs: CREAT 1.5H, MG 1.7L, HGB 10.5L Meds: Ativan, Colace, D 50%, humulin, vancomycin, Zofran, zosyn Diet: CCHO PO Intake: (12/06) breakfast 40%, (12/05) dinner 10%, (12/04) all meals 100% Ht: 177.8 cm (70") Wt: 64.4 kg (142#) BMI: 20.4 kg/m2 Bed scale: 64 kg IBW: 166# (75 kg) %IBW: 86 UBW: unable to access Age: 63/M Food Allergies: NKFA Skin: scattered scabs on extremities Harvey: 18 Edema: none GI: constipation Last BM: 12/03 Trigger: appears underweight/malnourished Per H&P, Pt is a 63 year old male with PMH of Polysubstance abuse, HTN and DM was brought in by EMS with altered mental status. Patient used heroin earlier in the afternoon of the day of admission and the patient does not remember anything since then. RDN Visit (12/06): Patient was sleeping, attempted to wake him up but was uncessussful. Per RN Soy, pt. ate about 40% breakfast this morning and does not have any N/V/D. Pt. does have constipation as last BM was on 12/03. RN said that he has given Colace this morning. Problem with: N/V/D/C: constipation Problems with: Chewing/Swallowing: none per RN Current appetite: unable to access Recent wt change: unable to access %wt change: n/a Vitamin/Supplement use: unable to access Special diet at home: unable to access Physical activity: unable to access Nutrition education given: Not possible as pt. was sleeping. Will be attempted during a F/U visit. Food-drug interactions: Colace- high fiber w/4889-3163 ml fluids Education given: no Estimated Nutritional Needs Based on actual body weight 64 kg Energy: 5422-9650 kcal/d (30-35kcal/kg) - geriatric needs Protein: 77-83 g/d (1.2-1.3 g/kg) - geriatric maintenance, sepsis Fluid: 4497-8717 ml/d (1 ml/kcal) or per doctor Nutrition Diagnosis 1. Inadequate calorie and protein intake related to possible poor appetite as evidenced by documented PO <75%. Intervention 1. Recommend continuing CCHO diet. 2. Recommend Glucerna BID. This will provide additional 440 kcal and 20g protein. Discussed recommendations with MADYSON Ryder. Monitor/Evaluate Goal: PO intake at least 75% of estimated needs Monitor: PO intake, Labs, GI function F/U in 3-5 days as moderate risk 12/09-
--- NOTE | 2018-12-06 11:55 | NUR ---
1. Recommend continuing [facility] diet. 2. Recommend Glucerna BID. This will provide additional 440 kcal and 20g protein. Discussed recommendations with MADYSON Ryder.
[2018-12-06 17:32] VITALS: BP 123/58
--- NOTE | 2018-12-06 18:04 | NUR ---
PT WAS SEEN FOR DYSPHAGIA. PT WAS ABLE TO SAFELY SWALLOW MS DIET WITH FINELY CHOPPED VEG AND MEAT WITH NECTAR THICK LIQUID. PT HAD MILD DIFFICULTY WITH MASTICATION SKILLS FOR REGULAR DIET AND MILD COUGH FOR THIN LIQUID. RECOMMENDATION MS DIET WITH FINELY CHOPPED VEG AND MEAT WITH NECTAR THICK LIQUID. SMALL BITES AND SIPS ONLY 1:1 SUPERVISION.
--- NOTE | 2018-12-06 18:20 | NUR ---
PATIENT IN BED, FINISHED DINNER TRAY & TOLERATED. SPEECH THERAPY IN TO SEE PATIENT AND RECOMMENDED NECTAR THICK LIQUIDS. WILL ENDORSE TO ONCOMING NURSE. PATIENT BACK TO SLEEP, CALL LIGHT IN REACH W SITTER AT BEDSIDE.
--- NOTE | 2018-12-06 18:36 | NUR ---
SPOKE TO AMAURI(N.P.) AND MADE HER AWARE OF SPEECH THERAPIST EVAL AND DIET RECOMMENDATION, NEW ORDER RECEIVED OF DIET ORDER RECCOMMENDED BY SPEECH THERAPIST, PLS SEE NEW ORDER IN CPOE. JENNIE PANIAGUA ASSIGNED TO THIS PT MADE AWARE OF ABOVE.
--- NOTE | 2018-12-06 19:06 | NUR ---
PT RECEIVED A/O X3, ABLE TO MAKE NEEDS KNOWN. TELE #3, DENIES ANY CP/PRESSURE. PULSES PALPABLE, NO EDEMA PRESENT. BREATHING IS EVEN AND UNLABORED ON RA, CONT PULSE OX-96%, NO RESP DISTRESS NOTED. ABD SOFT AND NONDISTENDED, DENIES N/V. VOIDS FREELY, URINAL AT BEDSIDE, PT MAY HAVE EPISODES OF URINARY INCONTINENCE. GENERALIZED WEAKNESS, ABLE TO REPOSITION INDEPENDENTLY; AMPUTATION TO RT TOES NOTED. MULTIPLE SCATTERED SCABS NOTED TO BLE, ELEMENTARY VOCAL MUSIC TEACHER. PT DENIES HAVING ANY PAIN AT THIS TIME. RT FEMORAL CENTRAL LINE IN PLACE, PATENT AND INTACT, SITE FREE FROM REDNESS OR SWELLING, LAST DRSG CHANGE: 12/05/18. NO ACUTE DISTRESS NOTED. SITTER AT BEDSIDE. CALL LIGHT WITHIN REACH. WILL CONT TO MONITOR.
[2018-12-06 20:57] VITALS: BP 138/63
--- NOTE | 2018-12-07 00:12 | NUR ---
PT RESTING IN BED WITH EYES CLOSED, BUT IS EASILY AROUSABLE. BREATHING IS EVEN AND UNLABORED, NO RESP DISTRESS NOTED. PT DENIES HAVING ANY PAIN AT THIS TIME. IVF INFUSING WELL TO RT FEMORAL CENTRAL LINE, SITE WNL. NO ACUTE DISTRESS OBSERVED. SITTER AT BEDSIDE. CALL LIGHT WITHIN REACH. WILL CONT TO MONITOR.
--- NOTE | 2018-12-07 05:05 | NUR ---
PT SLEPT WELL THROUGHOUT THE EVENING. BREATHING IS EVEN AND UNLABORED, NO RESP DISTRESS NOTED. NO ACUTE CHANGES ENCOUNTERED DURING SHIFT. ALL NEEDS MET AND ANTICIPATED. PT COMPLIANT WITH NURSING CARE. IVF INFUSING WELL TO RT FEMORAL CENTRAL LINE, PATENT AND INTACT, SITE FREE FROM REDNESS OR SWELLING. PT DENIES HAVING ANY PAIN AT THIS TIME. SITTER AT BEDSIDE. CALL LIGHT WITHIN REACH. WILL ENDORSE CARE TO AM NURSE.
[2018-12-07 05:56] VITALS: BP 160/88
--- NOTE | 2018-12-07 07:05 | NUR ---
RECIEVED PT RESTING IN BED WITH NO DISTRESS OR PAIN. A/OX3, NO FORMAN OR DIZZINESS. TELE # 3 CONNECTED TO PT. DENIES CP OR PRESSURE. CONTINUOUS PULSE OX ON PT. R FEMORAL CENTRAL LINE RUNNING 75ML/NS, INTACT AND PATENT WITH NO REDNESS. SAFETY PRECAUTIONS IN PLACE, CALL LIGHT WITHIN REACH, WILL MONITOR.
[2018-12-07 07:31] LABS: BASOPHIL % 0.4 % (0-2); CALCIUM 7.7 mg/dL (8.5-10.1); CARBON DIOXIDE 16.3 mmol/L (21-32); CREATININE SERUM 1.6 mg/dL (0.7-1.3); PLATELET COUNT 208 x10^3mcL (130-400); POTASSIUM SERUM 4.6 mmol/L (3.5-5.1); RED CELL DISTRIBUTION WIDTH 15.6 % (11.5-14.5)
[2018-12-07 08:01] VITALS: BP 168/7
--- NOTE | 2018-12-07 11:08 | NUR ---
PT RESTING COMFORATABLY IN BED WITH NO S/S OF DISTRES, PAIN, OR SOB. SAFETY PRECAUTIONS IN PLACE,CALL LIGHT WITHIN REACH, WILL CONT TO MONITOR.
[2018-12-07 12:26] VITALS: BP 169/79
[2018-12-07 12:40] VITALS: BP 169/79
--- NOTE | 2018-12-07 13:08 | NUR ---
PT STABLE TO DISCHARGE PER MD ORDER. VS WNL AND NO DISTRESS NOTED. TELE BOX 13 RETURNED BACK TO MANAGER AUDIO. RIGHT FEMORAL CENTRAL LINE REMOVED WITH FULL CATHETER INTACT. SITE HELD DOWN LONG ENOUGH TO STOP BLEEDING AND THEN COVERED WITH CDI DRESSING. NO REDNESS OR INFLAMMATION NOTED AT THE SITE. ALL DISCHARGE INSTRUCTIONS AND EDUCATION GIVEN TO PT AND SISTER, BOTH VERBALIZE UNDERSTANDING. ID BAND REMOVED FROM PT. ALL SCIN CDI. PT ESCORTED DOWN TO LOBBY VIA WC WITH CLOTH OPENER HAND AND SISTER AT SIDE. ALL CONCERNS AND NEEDS ADDRESSED.
== END 2018-12-07 13:30 | disposition home or self-care (01) | DRG 720 ==
LOC: ED 18:04 → DU 21:36
PROVIDERS: Internal Medicine; Student in an Organized Health Care Education/Training Program; ADMIT Internal Medicine
PROC: 06HY33Z Insertion of Infusion Device into Lower Vein, Percutaneous Approach (ICD-10-PCS; principal; 2018-12-03)
DX: A41.9 Sepsis, unspecified organism (principal); N17.0 Acute kidney failure with tubular necrosis; G92 Toxic encephalopathy; J18.9 Pneumonia, unspecified organism; E86.0 Dehydration; F12.10 Cannabis abuse, uncomplicated; E02 Subclinical iodine-deficiency hypothyroidism; E83.39 Other disorders of phosphorus metabolism; E87.5 Hyperkalemia; F11.10 Opioid abuse, uncomplicated; F17.210 Nicotine dependence, cigarettes, uncomplicated; K21.9 Gastro-esophageal reflux disease without esophagitis; E11.65 Type 2 diabetes mellitus with hyperglycemia; Z79.4 Long term (current) use of insulin; Z68.20 Body mass index [BMI] 20.0-20.9, adult; Z87.440 Personal history of urinary (tract) infections; Z79.899 Other long term (current) drug therapy
CPT/HCPCS: 36600; 82962; 83880; 92526-GN; 92610-GN; 97116-GP; G0378; G0480; J1630; J2310; J2405; J2543; J3370; J3475; J3490; J7030; J7040; J7050; J7120; Q0092

== ENCOUNTER 2019-04-05 00:48 | Inpatient (IN) | payer OTHER ==
[~2019-04-05] VITALS: Ht 175.3 cm; Wt 62.3 kg
--- NOTE | 2019-04-05 01:02 | NUR ---
PT BIBA FOR C/O ALOC. PER ASSET RECOVERY SPECIALIST PT IS COMING FROM A BOARDING CARE AND WAS FOUND UNDERHIS BED " LIKE HE WAS HIDING". PT HAS NO DIAGNOSIS OF DIMENTIA PER BOARDING CARE. PT IS A/O X3. PT CANNOT RECALL WHERE HE IS OR WHAT DAY IT IS. PT CAN STATE HIS NAME AND BIRTHDAY. PT DENIES ANY PAIN. PT CANNOT RECALL ANY MEDICATIONS HE TAKES. PT IS PLACED ON CARDIAC MONITORS. PT RESPS ARE E/U. PT SKIN IS WARM AND DRY TO TOUCH. PT SKIN SEEMS TO BE VERY DRY WITH FLAKES. ALL TOES ARE AMPUTATED FROM RT FOOT. PT RESPS ARE E/U. BELÉN CHEST RISE AND FALL NOTED. PT WAS TRANSFERRED FROM [facility] TO ED WITH WITH NO INCIDENCE. PT SEEM SLOW TO RESPOND. PT WAS ABLE TO ASSIST IN GETTING INTO HOSPITAL GOWN. AWAITING MSE
--- NOTE | 2019-04-05 01:13 | NUR ---
DR CARRION AT [facility] FOR MSE
--- NOTE | 2019-04-05 01:37 | NUR ---
PT TOLERATED STRIAGHT CATH PROCEDURE WELL
--- NOTE | 2019-04-05 01:51 | NUR ---
PT TAKEN TO CT VIA DELICIA STEVENSON BY TECH
--- NOTE | 2019-04-05 01:53 | NUR ---
PT RETURNED FROM CT WITH NO INCEDINCE
[2019-04-05 02:08] LABS: ALBUMIN 3.5 g/dL (3.4-5.0); ALKALINE PHOSPHATASE 135 U/L (46-116); ALT/SGPT 16 U/L (16-63); AST/SGOT 9 U/L (15-37); BILIRUBIN TOTAL 0.31 mg/dL (0.20-1.00); CALCIUM 8.9 mg/dL (8.5-10.1); CARBON DIOXIDE 17.4 mmol/L (21-32); CHLORIDE SERUM 112 mmol/L (98-107); CHOLESTEROL 174 mg/dL (<200); GFR1 36 mL/min; GLUCOSE SERUM 146 mg/dL (74-106); SODIUM SERUM 144 mmol/L (136-145); TOTAL PROTEIN, SERUM 7.3 g/dL (6.4-8.2)
[2019-04-05 02:10] LABS: BASOPHIL % 0.8 % (0-2); PLATELET COUNT 285 x10^3mcL (130-400); RED CELL DISTRIBUTION WIDTH 15.6 % (11.5-14.5)
[2019-04-05 02:18] LABS: POTASSIUM SERUM 6.9 mmol/L (3.5-5.1)
[2019-04-05 02:23] LABS: AMPHETAMINE QUAL UR NONE DETECTED (See below)
--- NOTE | 2019-04-05 03:32 | NUR ---
FEMORAL ATERY LINE ESTABLISHED BY DR CARRION. PT TOLERATED PROCEDURE WELL.
--- NOTE | 2019-04-05 03:41 | NUR ---
SCATTERED HEALING AND NON HEALING ABRASIANS NOTED TO BELÉN LOWER EXTREMITIES. PT HAS AN NON HEALED ABRASIAN NOTED TO RT KNEE. REDNESS AND ERRYTHEMIA NOTED TO THE RIGHT KNEE. PT CANNOT RECALL WHAT HAPPENED OR HOW THE ABRASIANS OCCURED.
--- NOTE | 2019-04-05 04:03 | NUR ---
GAVE PT REPORT TO NITIN PANIAGUA UPSTAIRS ON TELE FLOOR. PT IS BEING ADMITTED FOR FURTHER CARE. NITIN PANIAGUA WILL ASSUME PRIMARY CARE OF PT ONCE PT ARRIVES ON TELE FLOOR
--- NOTE | 2019-04-05 04:28 | NUR ---
PT WHEELED UP TO TELE FLOOR VIA ED [facility] AND ESCORTED BY MYSELF AND ALEXYS EMT. NO INCIDENCE NOTED
--- NOTE | 2019-04-05 05:14 | NUR ---
PT RECIEVED FROM ED, VIA [facility] ACCOMPANIED BY NURSE. PT TRANSFERED FROM [facility] TO BED SAFELY. PT A/O X2, ALERT TO PERSON AND PLACE. PT SEEMS TO BE A POOR HISTORIAN. SPEECH IS SLOW. TELE 7, SR WITH ELEVATED T. DENIES CP, NV, DIZZINESS, AND PALPATATIONS. PALPABLE PULSES, NO EDEMA NOTED AT THIS TIME. BREATHING E/U ON RA, DENIES SOB. ABD SOFT AND ROUND, DENIES PAIN TO PALPATION. PT CANNOT RECALL LAST BM. GENEREALIZED WEAKNESS, PT STATES HE USES A WALKER AT HOME. WOUND NOTED TO R LEG. PT STATED HE FELL FROM STAIRS A FEW DAYS AGO AND HURT HIS KNEE. DENIES PAIN. WOUND COVERED WITH ABD PAD. CDI. CENTERAL LINE TO RIGHT FEMORAL. CDI. BED AT LOWEST POSITION. CALL LIGHT WITHIN REACH. WILL CONTINUE TO MONITOR.
[2019-04-05 06:15] VITALS: BP 165/84
--- NOTE | 2019-04-05 06:46 | NUR ---
PT BP 165/83. MD INFORMED. WAITING FOR VERFIED MED. PT RESTING IN BED. NO S.S OF ACUTE DISTRESS. ALL NEEDS AND CONCERNS ADDRESSED. AT THIS TIME. BED AT LOWEST POSITION. CALL LIGHT WITHIN REACH. WILL ENDORSE TO DAY NURSE.
[2019-04-05 07:16] LABS: BASOPHIL % 0.2 % (0-2); PLATELET COUNT 214 x10^3mcL (130-400)
[2019-04-05 07:24] LABS: RED CELL DISTRIBUTION WIDTH 16.1 % (11.5-14.5)
--- NOTE | 2019-04-05 07:41 | NUR ---
RECEIVED PT LYING IN BED A/A. BREATHING EQUAL/UNLABORED ON RA. NO ACUTE PAIN/DISTRESS. IVF RUNNING AT 100ML/HR. NO REDNESS/SWELLING TO IV SITE. BED IN LOW POSITION, CALL LIGHT IN REACH, SAFETY PRECAUTIONS IN PLACE. WILL CONTINUE TO MONITOR
[2019-04-05 08:02] LABS: CALCIUM 8.3 mg/dL (8.5-10.1); CARBON DIOXIDE 15.8 mmol/L (21-32); CREATININE SERUM 1.9 mg/dL (0.7-1.3); MAGNESIUM 2.1 mg/dL (1.8-2.4); PHOSPHOROUS 4.5 mg/dL (2.5-4.9)
[2019-04-05 08:05] LABS: POTASSIUM SERUM 6.5 mmol/L (3.5-5.1)
[2019-04-05 08:07] VITALS: BP 149/85
[2019-04-05 10:31] LABS: microscopic required? YES; urine erythrocyte NEGATIVE (NEGATIVE)
--- NOTE | 2019-04-05 11:30 | NUR ---
PT LYING IN BED A/A. BREATHING EQUAL/UNLABORED ON RA. NO ACUTE PAIN/ DISTRESS. NO REDNESS/ SWELLING TO IV SITE. BED IN LOW POSITION, CALL LIGHT IN REACH, SAFETY PRECAUTIONS IN PLACE. WILL CONTINUE TO MONITOR
[2019-04-05 11:39] VITALS: BP 152/76
--- NOTE | 2019-04-05 12:42 | NUR ---
PT A/A, ORIENTED TO PERSON, PLACE, AND TIME. NO ACUTE CHANGES FROM PRIOR NEURO CHECK. WILL CONTINUE TO MONITOR
--- NOTE | 2019-04-05 15:36 | NUR ---
PT LYING IN BED WITH EYES CLOSED, EASILY AROUSABLE. BREATHING EQUAL/UNLAOBRED ON RA. NO ACUTE PAIN/ DISTRESS. NO REDNESS SWELLING TO IV SITE. IVF RUNNING AT 100ML/HR. BED IN LOW POSITION, CALL LIGHT IN REACH, SAFETY PRECAUTIONS IN PLACE. WILL CONTINUE TO MONITOR
[2019-04-05 16:08] VITALS: BP 132/69
--- NOTE | 2019-04-05 16:30 | NUR ---
PT A/A, ORIENTED TO PERSON, TIME, AND PLACE. NO ACUTE NEURO CHANGES. WILL CONTINUE TO MONITOR
--- NOTE | 2019-04-05 18:30 | NUR ---
PT LYING IN BED A/A, BREATHING EQUAL/UNLABORED ON RA. NO ACUTE PAIN/ DISTRESS. IVF RUNNING AT 100ML/HR. NO REDNESS/SWELLING TO IV SITE. BANDAGE COVERING R.LEG ABRASION, CDI. BED IN LOW POSTION, CALL LIGHT IN REACH, SAFETY PRECAUTIONS IN PLACE. WILL ENDORSE TO NIGHT NURSE
--- NOTE | 2019-04-05 20:00 | NUR ---
RECEIVED PT IN BED, RESTING QUIETLY. ALERT AND ORIENTED. ABLE TO VERBALIZE NEEDS. DENIES DIZZINESS/ HEADACHE. RESP. EVEN AND UNLABORED. ON ROOM AIR, NO ACUTE DISTRESS NOTED. SR/ST ON THE MONITOR, DENIES CHEST PAIN OR ANY DISCOMFORT. AFEBRILE AND VITAL SIGNS STABLE. IVF, NS AT 100ML/HR , INFUSING VIA RT FEMORAL CENTRAL LINE, SITE DRESSING DRY AND INTACT. ASSISTED WITH HS CARE. CALL LIGHT WITHIN REACH. WILL CONTINUE TO MONITOR.
[2019-04-05 21:01] VITALS: BP 137/68
--- NOTE | 2019-04-06 01:37 | NUR ---
EYES CLOSED, APPEARS ASLEEP. EASILY AROUSABLE. RESP. EVEN AND UNLABORED. ON ROOM AIR , NO ACUTE DISTRESS NOTED. IVF INTACT AND INFUSING WELL. CALL LIGHT WITHIN REACH. WILL CONTINUE TO MONITOR.
[2019-04-06 05:02] VITALS: BP 116/67
[2019-04-06 06:08] LABS: CARBON DIOXIDE 17.9 mmol/L (21-32); CREATININE SERUM 1.8 mg/dL (0.7-1.3); MAGNESIUM 1.9 mg/dL (1.8-2.4); PHOSPHOROUS 3.3 mg/dL (2.5-4.9); POTASSIUM SERUM 4.3 mmol/L (3.5-5.1)
[2019-04-06 06:11] LABS: BASOPHIL % 0.5 % (0-2); PLATELET COUNT 189 x10^3mcL (130-400)
--- NOTE | 2019-04-06 06:13 | NUR ---
SLEPT WELL DURING THE NIGHT, NO COMPLAINTS NOTED. DENIES PAIN OR ANY DISCOMFORT AT THIS TIME. AFEBRILE AND VITAL SIGNS STABLE. RESP. EVEN AND UNLABORED.NO ACUTE DISTRESS NOTED. DUE MEDS GIVEN ORDERED, LARRY. WELL. IVF INTACT AND INFUSING VIA RT FEMORAL TRIPLE LUMEN CENTRAL LINE.INCONT. OF URINE, KEPT CLEAN AND DRY. WILL CONTINUE TO MONITOR.
[2019-04-06 06:45] LABS: RED CELL DISTRIBUTION WIDTH 15.9 % (11.5-14.5)
--- NOTE | 2019-04-06 07:30 | NUR ---
PT ENDORSE TO ME THIS MORNING, LAYING IN BED RESTING, AA/O X3 FOLLOWS SIMPLE COMMANDS. BREATHING EVEN AN UNLABORD ON RA/ NO ACUTE RESP DISTRESS OR SOB NOTED. TELE 7 SR HR 76, DENIES ANY CP OR PRESSURE. BOWEL SOUNDS ACTIVE IN ALL FOUR QUADS. URINAL AT BEDSIDE. GEN WEAKNESS/ IS ABLE TO REPOSITION IN BED. R FOOT TOES AMPUTATED AND HEALED (OLD WOUND) INTACT. CENTRAL LINE TO RIGHT FEMORAL NOTED/ INTACT AND PATENT. CALL LIGHT IN REACH. BED IN LOW POSITION X2 SIDE RAILS UP/BY NURSING STATION.
[2019-04-06 07:47] VITALS: BP 115/64
[2019-04-06 11:52] VITALS: BP 131/71
--- NOTE | 2019-04-06 15:00 | NUR ---
PT TOLERATED 50% OF LUNCH. EMPTIED URINAL X1 500ML OF YELLOW NOTED.
[2019-04-06 16:05] VITALS: BP 120/68
--- NOTE | 2019-04-06 16:58 | NUR ---
PHYSICAL THERAPY DAILY NOTES CO-SIGN All documentation done by the Manager Hris for 04/06/19 has been reviewed. I agree with the documentation. Reviewed/Co-Signed by: Janis Aguilera PT Documentation Done by:SHARIF MORTON HEEL BOOM OPERATOR 04/06/19 Hgb=9.9; WILL BENEFIT W/ P.T. POST ACUTE STAY
--- NOTE | 2019-04-06 18:54 | NUR ---
NO ACUTE CHANGES AT THIS TIME, NO ACUTE RESP DISTRESS OR SOB NOTED. RIGHT FEMORAL CENTRAL LINE INTACT AND PATENT INFUSING AT 70ML/HR. CALL LIGHT IN REACH. BED IN LOW POSITION BY NURSING STATION. WILL ENDORSE TO INCOMING RN.
--- NOTE | 2019-04-06 19:42 | NUR ---
RECEIVED PT FROM PREVIOUS SHIFT. PT A/OX3. DENIES PAIN. DENIES SOB ON RA. D5W INFUSING AT 70ML/HR TO R FEMORAL CENTRAL LINE. CALL LIGHT WITHIN REACH, BED IN LOW POSITION. WILL CONTINUE TO MONITOR.
[2019-04-06 19:45] VITALS: BP 131/72
[2019-04-07 04:44] VITALS: BP 133/75
[2019-04-07 06:25] LABS: BASOPHIL % 0.9 % (0-2); PLATELET COUNT 178 x10^3mcL (130-400)
[2019-04-07 07:00] LABS: CALCIUM 8.3 mg/dL (8.5-10.1); CARBON DIOXIDE 18.8 mmol/L (21-32); CREATININE SERUM 1.4 mg/dL (0.7-1.3); MAGNESIUM 1.8 mg/dL (1.8-2.4); PHOSPHOROUS 3.1 mg/dL (2.5-4.9)
[2019-04-07 07:05] LABS: RED CELL DISTRIBUTION WIDTH 15.8 % (11.5-14.5)
--- NOTE | 2019-04-07 07:30 | NUR ---
PT ENDORSE TO ME THIS MORNING, LAYING IN BED RESTING. AA/O X3 WITH EYES CLOSE, EASILY AROUSABLE. BREATHING EVEN AND UNLABORED ON RA, NO ACUTE RESP DISTRESS OR SOB NOTED. TELE SR NOTED, HR64 NOTED. NO SIGN OF CP OR PRESSURE. URINAL AT BEDSIDE, INCONT. BOWEL SOUNDS ACTIVE IN ALL FOUR QUADS. IV TO THE R FEMORAL (CENTRAL LINE) INTACT AND PATENT/ INFUSING AT 70ML/ HR DX5% WITH WATER. CALL LIGHT IN REACH. BED IN LOW POSITION, X2 SIDE RAILS UP/ BY NURSING STATION. WILL CONTINUE TO MONITOR.
[2019-04-07 08:35] VITALS: BP 134/78
[2019-04-07 12:13] VITALS: BP 156/85
--- NOTE | 2019-04-07 13:30 | NUR ---
PT TOLERATED 100% OF LUNCH. DENIES ANY N/V OR DISCOMFORT. CALL LIGHT IN REACH. BED IN LOW POSITION. PER MOP MAN MUTUC REMOVED TELE AND RETURNED. PT IS NOW MEDSURG. WILL CONTINUE TO MONITOR.
[2019-04-07 16:28] VITALS: BP 134/69
--- NOTE | 2019-04-07 17:40 | NUR ---
PT SITTING UP IN BED WATCHING T.V. PROVIDED A SUGAR FREE PUDDING DUE TO ACCU CK BEING 89. PT STATING HE FEELS WELL, DENIES ANY DISCOMFORT. CALL LIGHT IN REACH. BED IN LOW POSITION BY NURSING STATION. WILL CONTINUE TO MONITOR.
--- NOTE | 2019-04-07 18:40 | NUR ---
NO ACUTE CHANGES AT THIS TIME, NO ACUTE RESP DISTRESS OR SOB NOTED. TOLERATED 100 % OF DINNER/ DENIES ANY N/V AT THIS TIME. PT REMAINS ON MEDSURG/ DENIES ANY CP OR PRESSURE. R FEMORAL CENTRAL LINE INTACT / PATENT/ HEPLOCKED. CALL LIGHT IN REACH. BED IN LOW POSITION, X2 SIDE RAIL UP, BED ALARM ON/ NEAR NURSING STATION. WILL ENDORSE TO INCOMING RN.
--- NOTE | 2019-04-07 19:14 | NUR ---
RECEIVED PT FROM PREVIOUS SHIFT. PT RESTING WITH EYES CLOSED, AWAKENED BY VERBAL STIMULI. DENIES PAIN. DENIES SOB ON RA. R FEMORAL, DRESSING CDI. FLUSHING WELL. CALL LIGHT WITHIN REACH, BED IN LOW POSITION. WILL CONTINUE TO MONITOR.
[2019-04-07 19:46] VITALS: BP 118/64
--- NOTE | 2019-04-08 01:01 | NUR ---
PT RESTING IN NO ACUTE DISTRESS. RR EVEN AND UNLABORED. CALL LIGHT WITHIN REACH, BED IN LOW POSITION. WILL CONTINUE TO MONITOR.
[2019-04-08 05:23] VITALS: BP 125/80
--- NOTE | 2019-04-08 07:38 | NUR ---
RECIEVED REPORT FROM [facility] NURSE. PATIENT CURRENTLY RESETING IN BED WITH COVERS OVER HEAD. PATIENT ACKNOWLEGDED MY PRESENCE WHEN TOLD ABOUT CHANGE OF SHIFT. CURRENTLY SALINE LOCKED IV TO RIGHT FEMORAL CENTRAL LINE. NO REPORT OF PAIN. NO SIGN/SYMPTOMS OF ALOC. BED IN THE LOW POSITION. SAFETY PRECAUTIONS IN PLACE. CALL LIGHT WITHIN REACH.
[2019-04-08 08:12] LABS: BASOPHIL % 0.8 % (0-2); PLATELET COUNT 186 x10^3mcL (130-400)
[2019-04-08 08:23] VITALS: BP 143/86
[2019-04-08 08:27] LABS: RED CELL DISTRIBUTION WIDTH 15.7 % (11.5-14.5)
[2019-04-08 08:33] LABS: CALCIUM 8.4 mg/dL (8.5-10.1); CARBON DIOXIDE 19.2 mmol/L (21-32); CREATININE SERUM 1.3 mg/dL (0.7-1.3); POTASSIUM SERUM 4.5 mmol/L (3.5-5.1)
[2019-04-08 08:58] VITALS: Ht 175.3 cm; Wt 62.3 kg
[2019-04-08 11:57] VITALS: BP 125/39
[2019-04-08 13:44] VITALS: BP 125/39
--- NOTE | 2019-04-08 14:29 | NUR ---
PHYSICAL THERAPY DAILY NOTES CO-SIGN All documentation done by the Communications Maintainer for 04/08/19 has been reviewed. I agree with the documentation. Reviewed/Co-Signed by: Flor Gibson PT Documentation Done by:DEEJAY FREGOSO PTA
--- NOTE | 2019-04-08 14:30 | NUR ---
PHYSICAL THERAPY DAILY NOTES CO-SIGN All documentation done by the Boiler House Inspector for 04/08/19 has been reviewed. I agree with the documentation. Reviewed/Co-Signed by: Flor Gibson PT Documentation Done by:DEEJAY FREGOSO PTA
--- NOTE | 2019-04-08 17:06 | NUR ---
REMOVED THE PICC LINE AT FEMORAL. NO BLEEDING. APPLY PRESURE DRESSING.
== END 2019-04-08 17:25 | DRG 52 ==
LOC: ED 00:48 → DU 03:25 → MU 03:25 → DU 17:20 → MU 04-07 10:55
PROVIDERS: Emergency Medicine; ADMIT Internal Medicine
PROC: 06HY33Z Insertion of Infusion Device into Lower Vein, Percutaneous Approach (ICD-10-PCS; principal; 2019-04-05)
PROC: B54BZZA Ultrasonography of Right Lower Extremity Veins, Guidance (ICD-10-PCS; 2019-04-05)
DX: G92 Toxic encephalopathy (principal); N17.0 Acute kidney failure with tubular necrosis; E11.22 Type 2 diabetes mellitus with diabetic chronic kidney disease; E87.0 Hyperosmolality and hypernatremia; E11.65 Type 2 diabetes mellitus with hyperglycemia; N18.3 Chronic kidney disease, stage 3 (moderate); E83.51 Hypocalcemia; K21.9 Gastro-esophageal reflux disease without esophagitis; F17.210 Nicotine dependence, cigarettes, uncomplicated; F12.120 Cannabis abuse with intoxication, uncomplicated; D72.829 Elevated white blood cell count, unspecified; I12.9 Hypertensive chronic kidney disease with stage 1 through stage 4 chronic kidney disease, or unspecified chronic kidney disease; E87.2 Acidosis; E87.5 Hyperkalemia; E87.8 Other disorders of electrolyte and fluid balance, not elsewhere classified; E86.0 Dehydration; Z79.4 Long term (current) use of insulin; Z89.421 Acquired absence of other right toe(s); Z68.20 Body mass index [BMI] 20.0-20.9, adult; Z87.440 Personal history of urinary (tract) infections; Z90.89 Acquired absence of other organs; Z79.899 Other long term (current) drug therapy
CPT/HCPCS: 82962; 97110-GP; 97116-GP; 97530-GP; G0378; G0480; J1815; J3490; J7030; Q0092

== ENCOUNTER 2020-01-10 16:59 | Emergency (ER) | payer OTHER ==
[~2020-01-10] VITALS: Ht 175.3 cm; Wt 68.0 kg
[2020-01-10 17:08] VITALS: Ht 175.3 cm; Wt 68.0 kg
[2020-01-10 17:37] LABS: BASOPHIL % 0.7 % (0-2); PLATELET COUNT 281 x10^3mcL (130-400); RED CELL DISTRIBUTION WIDTH 15.7 % (11.5-14.5)
[2020-01-10 17:44] LABS: CALCIUM 8.5 mg/dL (8.5-10.1); CARBON DIOXIDE 16.5 mmol/L (21-32); CREATININE SERUM 2.6 mg/dL (0.7-1.3)
[2020-01-10 17:48] LABS: BILIRUBIN TOTAL 0.32 mg/dL (0.20-1.00); TOTAL PROTEIN, SERUM 7.8 g/dL (6.4-8.2)
[2020-01-10 17:49] LABS: ALBUMIN 3.3 g/dL (3.4-5.0)
[2020-01-10 21:09] VITALS: BP 167/98
== END 2020-01-10 21:09 | disposition home or self-care (01) ==
LOC: ED 16:59
PROVIDERS: Emergency Medicine
DX: T38.3X5A Adverse effect of insulin and oral hypoglycemic [antidiabetic] drugs, initial encounter (principal); R40.4 Transient alteration of awareness; Y92.89 Other specified places as the place of occurrence of the external cause
CPT/HCPCS: 82962